=== PATIENT | male | born 1985 | race Caucasian/White ===

== ENCOUNTER 2024-08-22 15:43 | Emergency (ER) | payer OTHER ==
[~2024-08-22] VITALS: Ht 175.3 cm; Wt 79.4 kg
[2024-08-22 15:48] VITALS: BP 126/82; TEMP 98.2
[2024-08-22] MEDS ORDERED: CARBAMIDE PEROXIDE OTIC 15 ML BOTTLE ONE (16:17)
[2024-08-22] MEDS: CARBAMIDE PEROXIDE OTIC 15 ML BOTTLE OT ONE (16:20)
[2024-08-22 17:05] VITALS: O2SAT 98
== END 2024-08-22 17:06 | disposition home or self-care (01) ==
LOC: ER 15:43
DX: H61.22 Impacted cerumen, left ear (principal)